=== PATIENT | female | born 1990 | race Asian ===

== ENCOUNTER 2023-02-02 17:11 | Observation (INO) | payer MEDICAID ==
[~2023-02-02] VITALS: Ht 162.6 cm; Wt 75.7 kg
[2023-02-02 19:00] LABS: CLARITY URINE TURBID (CLEAR); COLOR URINE YELLOW (YELLOW); GLUCOSE URINE NEGATIVE (NEGATIVE); KETONES URINE NEGATIVE (NEGATIVE); LEUKOCYTE ESTERASE URINE 3+ (NEGATIVE); NITRITE URINE NEGATIVE (NEGATIVE); OCCULT BLOOD URINE NEGATIVE (NEGATIVE); PROTEIN URINE NEGATIVE (NEGATIVE); SPECIFIC GRAVITY URINE 1.019 (1.005-1.030); UROBILINOGEN URINE 0.2 E.U./dL (0.2-1.0)
[2023-02-02 19:16] LABS: BACTERIA URINE 3+; RBC URINE 0-2 /hpf (0-2); SQUAMOUS EPITHELIAL CELL URINE 3+ /lpf (RARE/1+); WBC URINE TNTC /hpf (0-2); YEAST URINE 1+
[2023-02-02] MEDS ORDERED: LACTATED RINGERS 1,000 ML IV ONE (22:00)
[2023-02-02] MEDS ORDERED: PREN1TAB23 PO (22:10)
[2023-02-02] MEDS ORDERED: CEFAZOLIN 2,000 MG in DEXT 5% WATER 100 ML IV SCH (23:00)
== END 2023-02-02 22:30 | disposition left against medical advice (07) ==
LOC: 8 EST LDRP 17:11
PROVIDERS: ADMIT Obstetrics & Gynecology; ATTEND Obstetrics & Gynecology
DX: O26.893 Other specified pregnancy related conditions, third trimester (principal); R10.9 Unspecified abdominal pain; O62.9 Abnormality of forces of labor, unspecified; Z3A.31 31 weeks gestation of pregnancy
CPT/HCPCS: 59025; 99281; 81003; 87086; 76818; 76805; J0690; J7060; G0378 ×2